=== PATIENT | female | born 1975 | race Caucasian/White ===

== ENCOUNTER 2024-07-12 19:23 | Emergency (ER) | payer BC ==
[~2024-07-12] VITALS: Ht 165.1 cm; Wt 63.5 kg
[2024-07-12 19:53] VITALS: BP 129/88; TEMP 98.6
[2024-07-12] MEDS ORDERED: IBUPROFEN 400 MG TABLET ONE (20:26)
[2024-07-12] MEDS: IBUPROFEN 400 MG TABLET PO ONE (20:30)
[2024-07-12 20:44] VITALS: O2SAT 98
[2024-07-12] MEDS ORDERED: CYCL5TAB PO (21:10)
[2024-07-12] MEDS ORDERED: IBUP-1957 PO (21:10)
== END 2024-07-12 20:44 | disposition home or self-care (01) ==
LOC: ER 19:28
DX: R07.89 Other chest pain (principal); M25.562 Pain in left knee; J45.909 Unspecified asthma, uncomplicated; Z79.1 Long term (current) use of non-steroidal anti-inflammatories (NSAID); Z60.2 Problems related to living alone
CPT/HCPCS: 71100-TC